=== PATIENT | female | born 1990 | race Caucasian/White ===

== ENCOUNTER 2016-08-14 05:05 | Inpatient (IN) | payer BC, OTHER ==
[2016-08-14 05:27] VITALS: BMI 24.3
[2016-08-14] MEDS ORDERED: Sodium Citrate/Citric Acid 15 ml Sol PO ONE (05:40)
[2016-08-14] MEDS ORDERED: Lactated Ringer's 1,000 ML IV SCH ×2 (05:45)
[2016-08-14 06:00] LABS: BASO % 0.3 % (0.0-2.0); EOS # 0.2 K/uL (0.0-0.7); EOS % 2.5 % (0.0-4.0); HEMATOCRIT 35.1 % (34.0-47.0); LYMPH # 2.4 K/uL (1.0-4.3); LYMPH % 24.7 % (20.0-40.0); MEAN CELL VOLUME 74.1 fL (81.0-99.0); MEAN CORPUSCULAR HEMOGLOBIN 24.6 pg (27.0-31.0); MEAN CORPUSCULAR HGB CONC 33.1 g/dL (33.0-37.0); MEAN PLATELET VOLUME 8.7 fL (7.2-11.7); MONO % 10.2 % (0.0-10.0); RED CELL DISTRIBUTION WIDTH 14.2 % (11.5-14.5); WHITE BLOOD COUNT 9.9 K/uL (4.8-10.8)
--- NOTE | 2016-08-14 06:02 | OBADHP ---
Datetime: 08/14/2016 05:48 IP Chief Complaint Other: previous section x 2 Admit Comment, IP Provider: 26 yo P2, AJITH 08/25/16, EGA 38w 4d, previous C/S x 2 c/o contractions sin ce 0400 hours. pain scale 5/10. (+) AFM; denies LOF, VB. care: Dr. 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 x 6 years Fam Hx: Mother alive early 50s - HTN, heart disease. Father alive 63 - no med issues. No known fam h/o cancer P.E.: as above. WD in NAD. Awake, alert, oriented to time, person and place. Pleasant and cooperat lorraine Assessment: 26 yo P2, previous C/S, uterine contractions. Category 1 tracing. Patient last ate 235 0 hours. Clinically stable. Plan: 1) Admit 2) NPO 3) IVFs 4) Admission labs 5) Continuous EFM 6) Abdominal prep and shave 7) Crow[place] 8) Notify peds 9) Notify anesthesia 10) Mefoxin, substation operator apprentice to O.R. 11) Patient substation operator apprentice to O.R. - Dr. Beard is aware Pelvic Type - PN: Not Done Extremities - PN: Normal Abdomen - PN: Normal Back - PN: Normal Breast - PN: Not Done Lungs - PN: Normal Heart - PN: Normal Thyroid - PN: Not Done Neurologic - PN: Normal HEENT - PN: Normal General - PN: Normal FHR - Baseline A Provider: 150 Contraction Comments Provider: irregular Comments, ACOG Physical Exam: Skin: warm, dry, intact Abdomen: Gravid. Soft. Healed Pfannenstiel scar with keloid changes. Fundal height 39.5 cm All other systems reviewed and are negative Gestation - Est Wks by US: 38w 4d IP Hx Assessment: The History has been Reviewed and is Current Vital Signs Provider: Reviewed IP Chief Complaint: Uterine contractions NICHD Variability Prov Fetus A: Moderate 6-25bpm NICHD Accel Fetus A IP Provider: [id number] NICHD Decel Fetus A IP Provider: None Genitourinary Exam: Not Done DTRs - PN: Not Done EGA AdmitDate IP: 38.3 IP Adm Impression: Term, intrauterine ; Active labor IP Admit Plan: Admit to unit; Initiate Section protocol
[2016-08-14 06:09] LABS: RBC URINE < 1 /hpf (0-3); URINE BILIRUBIN NEGATIVE (NEGATIVE); URINE BLOOD 1+ (NEGATIVE); URINE COLOR Yellow (YELLOW); URINE GLUCOSE (UA) NORMAL (Normal); URINE KETONE NEGATIVE (NEGATIVE); URINE LEUKOCYTE ESTERASE NEG Leu/uL (Negative); URINE PROTEIN NEGATIVE (NEGATIVE); URINE UROBILINOGEN NORMAL mg/dL (0.2-1.0); WBC URINE 2 /hpf (0-5)
[2016-08-14] MEDS ORDERED: Morphine 1 mg/ml preservative-free Inj(Duramorph) ONE (06:09)
[2016-08-14 06:12] LABS: CHLORIDE 102 mmol/L (98-107)
[2016-08-14 06:13] LABS: POTASSIUM 3.8 mmol/L (3.6-5.2); SODIUM 135 mmol/L (132-148)
--- NOTE | 2016-08-14 06:13 | OBADHP ---
Datetime: 08/14/2016 05:48 Admit Comment, IP Provider: 26 yo P2, AJITH 08/25/16, EGA 38w 4d, previous C/S x 2 c/o contractions sin ce 0400 hours. pain scale 5/10. (+) AFM; denies LOF, VB. care: Dr. 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 x 6 years Fam Hx: Mother alive early 50s - HTN, heart disease. Father alive 63 - no med issues. No known fam h/o cancer P.E.: as above. WD in NAD. Awake, alert, oriented to time, person and place. Pleasant and cooperat lorraine Assessment: 26 yo P2, previous C/S, uterine contractions. Category 1 tracing. Patient last ate 235 0 hours. Clinically stable. Plan: 1) Admit 2) NPO 3) IVFs 4) Admission labs 5) Continuous EFM 6) Abdominal prep and shave 7) Crowley 8) Notify peds 9) Notify anesthesia 10) Mefoxin, route salesperson to O.R. 11) Patient route salesperson to O.R. Agrees with above EGA AdmitDate IP: 38.3
[2016-08-14 06:15] LABS: GFR AFRICAN-AMERICAN > 60
[2016-08-14 06:16] LABS: ALKALINE PHOSPHATASE 161 U/L (38-126); ALT/SGPT 30 U/L (9-52); AST/SGOT 26 U/L (14-36); BILIRUBIN,TOTAL 0.7 mg/dL (0.2-1.3); BLOOD UREA NITROGEN 7 mg/dL (7-17); CALCIUM 9.1 mg/dl (8.6-10.4); CARBON DIOXIDE 21 mmol/L (22-30); GLUCOSE,RANDOM 93 mg/dL (65-105); TOTAL PROTEIN 7.6 g/dL (6.3-8.3)
[2016-08-14 06:17] LABS: ALB/GLOB RATIO 0.9 (1.0-2.1)
[2016-08-14] MEDS ORDERED: Triamcinolone Acetonide 40 mg/mL Inj ONE (06:29)
[2016-08-14] MEDS ORDERED: Midazolam 2 MG/2 ML VIAL ONE (07:00)
[2016-08-14] MEDS ORDERED: cefOXitin IV 2 gm in Dextrose 2 GM/50 ML BAG IVPB ONE (07:00)
--- NOTE | 2016-08-14 07:27 | OBDS ---
DELIVERY PERSONNEL Delivery Doctor: Bakari Beard MD Scrub Nurse: Samantha Vides Airworthiness Safety Inspector: Angela Richards RN Anesthesiologist: Shiva De León MD MATERNAL INFORMATION Delivery Anesthesia: Spinal Medications in Delivery: pitocin 20 units Estimated Blood Loss (ml): 800 Placenta Cultured: No Maternal Complications: None RN Comments: live baby girl born via repeat c/section with 9_9 Provider Comments: baby deliverd in [facility]. 3 cords arround the neck. omental adhesion. no com LABOR SUMMARY EDC: 08/25/2016 00:00 No. Babies in Womb: 1 Attempted: No Labor Anesthesia: None LABOR INFORMATION Reason for Induction: Not Applicable Onset of Labor: 08/14/2016 04:00 Group B Beta Strep: Negative Steroids Given: None Reason Steroids Not Administered: Not Applicable MEMBRANES Membranes Rupture Method: Artificial Rupture of Membranes: 08/14/2016 06:39 Length of Rupture (hrs): 0.02 Amniotic Fluid Color: Clear STAGES OF LABOR Stage 3 hrs: 0 Stage 3 min: 0 Total Time in Labor hrs: 2 Total Time in Labor min: 40 CSECTION DELIVERY Primary Indication: Repeat Elective Secondary Indication: Repeat Elective CSection Urgency: Elective CSection Incidence: Repeat Labor: No Labor Elective: Elective CSection Incision: Lower Uterine Transverse BABY A INFORMATION Delivery Date/Time: 08/14/2016 06:40 Method of Delivery: Born in Route : No : N/A Forceps: N/A Vacuum Extraction: N/A Shoulder Dystocia : No SHOULDER DYSTOCIA BABY A Infant Delivery Date/Time: 08/14/2016 06:40 PRESENTATION/POSITION BABY A Presentation: Cephalic Cephalic Presentation: Vertex Breech Presentation: N/A PLACENTA INFORMATION BABY A Placenta Delivery Time : 08/14/2016 06:40 Placenta Method of Delivery: Manual Removal Placenta Status: Delivered SCORES BABY A Heart Rate 1 min: >100 bpm Resp Effort 1 min: Good Cry Reflex Irritability 1 min: Cough or Sneeze or Pulls Away Muscle Tone 1 min: Active Motion Color 1 min: Body [place], Extremities Blue SCORE 1 MIN: 9 Heart Rate 5 min: >100 bpm Resp Effort 5 min: Good Cry Reflex Irritability 5 min: Cough or Sneeze or Pulls Away Muscle Tone 5 min: Active Motion Color 5 min: Body [place], Extremities Blue SCORE 5 MIN: 9 INFANT INFORMATION BABY A Gestational Age at Delivery: 38.3 Gestational Status: Term Outcome : Liveborn Condition : Stable Infant Sex: Female IDENTIFICATION/MEDS BABY A ID Band Number: [id number] ID Band Location: Left Leg; Left Arm Sensor Applied: Yes Sensor Number: [id number] Sensor Location : Cord Clamp Vitamin K Given : Not Given Erythromycin Given: Not Given WEIGHT/LENGTH BABY A Infant Birthweight (gms): 3240 Infant Weight (lb): 7 Weight (oz): 2 Length Inches: 19.50 Infant Length cms: 49.5 CORD INFORMATION BABY A No. Cord Vessels: 3 Nuchal Cord : around neck x3 Cord Blood Taken: Yes Infant Suction: Mouth; Nose ASSESSMENT BABY A Complications: None Physical Findings at Delivery: Within Normal Limits Respirations: Appears Normal Manager Stone/ALS Called : No Care By: /JacquelineRN Transferred To: Remains with Mother
[2016-08-14] MEDS ORDERED: Oxycodone/Acetaminophen 5/325 mg Tab PO PRN (07:28)
--- NOTE | 2016-08-14 07:32 | PCM.SURG1 ---
Surgeon's Initial Post Op Note - Surgeon's Notes Surgeon: dr good Aircraft Sales Representative: dr ocampo Type of Anesthesia: Spinal Anesthesia Administered By: dr umana Pre-Operative Diagnosis: 26 yr at 38+weeks previous c/s in labor Operative Findings: see the op reoprt Post-Operative Diagnosis: same with omental adhesions Operation Performed: repeat section and lysis of adhesions Specimen/Specimens Removed: fetus. cord blood Estimated Blood Loss: EBL {In ML}: 800 Blood Products Given: N/A Drains Used: No Drains Post-Op Condition: Good Date of Surgery/Procedure: 08/14/16 Time of Surgery/Procedure: 07:40
[2016-08-14] MEDS: Simethicone 80 mg Chewtab PO SCH ×4 (12:05→22:17)
--- NOTE | 2016-08-14 19:35 | OP ---
PROCEDURE DATE: 08/14/2016 PREOPERATIVE DIAGNOSES: A 26-year-old 3, para 2 at 38+ weeks with a previous sectio n, in labor. POSTOPERATIVE DIAGNOSES: A 26-year-old 3, para 2 at 38+ weeks with a previous secti on, in labor with adhesions. SURGEON: Bakari Beard MD [employer] SURGEON: Dr. Rowe who was present throughout the surgery for retraction, exposure and p ushing at the time of delivery. ANESTHESIA: Spinal. ANESTHESIOLOGIST: Dr. Osuna. COMPLICATIONS: None. PROCEDURE PERFORMED: Repeat section and lysis of adhesions. ESTIMATED BLOOD LOSS: 800 mL. PROCEDURE: After informed consent was obtained, the patient was brought to the operating room and pl aced on the table where spinal anesthesia was given. When anesthesia was found to be adequate, she w as prepped and draped in a normal sterile fashion. At the site of the previous skin incision, an inc ision was made with a knife subcutaneous tissue with a Bovie. The fascia was excised and exten ded on both sides using curved Celeste scissors. The fascia was first at the site of the umbi licus then the rectus muscle. When we went in, we found that there was omentum, which was adherent c oming to the peritoneum, it was adherent from the anterior wall of the uterus to the ____ so 2 Kellys were taken. It was taken out and free ties were tied up. Then there was the omentum going on the b ladder, which was taken out with the Metzenbaum scissors. After that bladder flap was created and lo wer uterine segment incision was made with a knife, extended on both sides using curved Celeste scissors . The baby delivered in KIKI position. There were 3 cords around the baby, which was reduced. Cord was clamped and baby was handed to awaiting patient portal representative. Placenta was delivered manually and sent t o pathology. The uterus was exteriorized, cleared of all the clots and debris. The uterine incision was closed using 1-0 Vicryl in a locking fashion. Second layer closure with the same stitch. It was hemostatic. No bleeding. The uterus was returned back to the abdominal cavity. Gutters wer e cleared of all the clots and debris. The incision was looked back, it was hemostatic. Then, Surgi vi was placed for excellent hemostasis. Gutters cleared of all the clots and debris. After that, t he peritoneum was closed with 2-0 Vicryl in a nonlocking fashion. The muscle was closed using 2-0 Vi cryl in a nonlocking fashion. The fascia was closed using 1-0 Vicryl in a nonlocking fashion. Subcu taneous was closed using 0 Vicryl in an interrupted fashion. Skin was closed using 4-0 Monocryl in a straight needle. Kenalog was given. The patient tolerated the procedure well. Lap, sponge and ins trument correct x 2. Bakari Beard MD cc: [id number] TT: 08/14/2016 19:35:10 michaela
--- NOTE | 2016-08-15 07:13 | OBPPN ---
Datetime: 08/15/2016 07:10 PP Pain Prov: Within normal limits PP Nausea Prov: Denies PP Flatus Prov: No PP Abdomen/Uterus Prov: Normal PP Lochia Prov: Normal PP Extremities Prov: Normal PP C/S Incision Prov: Normal PP Comments Phys Exam Prov: fudus below umblicus ext no edema,no calf ten dressing clean and dry PP Impression Prov: Normal progression PP Plan Prov: Continue present management PP Progress Note Prov: pt was seen at bed side, pain under control,no n/v, tolertaing deit,wait to v oid,min lochia, flatus _ pod#1 s/p c/s cbc reg deit cont pain management cont post op care cpont pain management Vital Signs Provider PP: Reviewed; Within Normal Limits
[2016-08-15] MEDS ORDERED: Bisacodyl 5mg EC Tab PO ONE (07:29)
[2016-08-15] MEDS: Oxycodone/Acetaminophen 5/325 mg Tab PO PRN ×3 (08:13→22:18)
[2016-08-15 08:40] LABS: HEMATOCRIT 33.2 % (34.0-47.0); MEAN CELL VOLUME 75.6 fL (81.0-99.0); MEAN CORPUSCULAR HEMOGLOBIN 24.2 pg (27.0-31.0); MEAN PLATELET VOLUME 8.6 fL (7.2-11.7); RED CELL DISTRIBUTION WIDTH 14.4 % (11.5-14.5); WHITE BLOOD COUNT 14.9 K/uL (4.8-10.8)
[2016-08-15] MEDS: Simethicone 80 mg Chewtab PO SCH ×4 (09:06→22:16)
[2016-08-16 08:47] VITALS: BP 100/55; PULSE 77; RESP 18; TEMP 98; O2SAT 100
[2016-08-16] MEDS: Simethicone 80 mg Chewtab PO SCH ×3 (10:02→17:04)
[2016-08-16] MEDS: Oxycodone/Acetaminophen 5/325 mg Tab PO PRN (17:06)
--- NOTE | 2016-08-16 20:44 | OBPPN ---
Datetime: 08/16/2016 16:49 PP Pain Prov: Within normal limits PP Nausea Prov: Denies PP Flatus Prov: Yes PP BM Prov: Yes PP Heart Prov: Normal PP Lungs Prov: Normal PP Abdomen/Uterus Prov: Normal PP Comments Phys Exam Prov: Abdomen: soft, non tender. fundus 1 FB below umbilicus. Incision with amador bcuticular closure - clean, dry and intact. Mild lochia rubra All other systems reviewed and are negative PP Impression Prov: Normal progression PP Plan Prov: Discharge PP Progress Note Prov: Asked by Dr. beard to evaluate patient for discharge home. Patient received in room 452, ambulating. Breast- and bottlefeeding. Ambulating and voiding withou t incident. C/O shoulder pain since delivery. Assessment: POD#2 26 y.o. P3, S/P C/S #3; afebrile, vital signs stable. returning GI and functi ons. Mild anemia - asymptomatic. Musculoskeletal pain - advised to take motrin, as needed; and to mari ly ice packs to area, BID to TID. Clinically stable. Plan: 1) Discharge home 2) See full discharge instructions - as per Dr. Beard Vital Signs Provider PP: Reviewed
== END 2016-08-16 20:15 | disposition home or self-care (01) | DRG 766 ==
LOC: C.EROB 05:05 → C.4D 05:42 → C.4M 10:09
PROVIDERS: ADMIT Obstetrics & Gynecology; ATTEND Obstetrics & Gynecology
PROC: 10D00Z1 Extraction of Products of Conception, Low, Open Approach (ICD-10-PCS; principal; 2016-08-14)
PROC: 0DNS0ZZ (ICD-10-PCS; 2016-08-14)
DX: O34.211 Maternal care for low transverse scar from previous cesarean delivery (principal); K66.0 Peritoneal adhesions (postprocedural) (postinfection); O69.1XX0 Labor and delivery complicated by cord around neck, with compression, not applicable or unspecified; O99.62 Diseases of the digestive system complicating childbirth; O75.82 Onset (spontaneous) of labor after 37 completed weeks of gestation but before 39 completed weeks gestation, with delivery by (planned) cesarean section; Z3A.38 38 weeks gestation of pregnancy; Z37.0 Single live birth